=== PATIENT | male | born 1965 | race Caucasian/White ===

== ENCOUNTER → 2017-04-09 | Outpatient (CLI) | payer SELFPAY ==
[~2017-04-09] MED LIST: GADOBUTROL 10 MMOL/10 ML (GADAVIST) VIAL IV ONE
--- NOTE | 2017-04-09 14:55 | Diagnostic Imaging Report ---
PROCEDURE: MRI right upper extremity with and without contrast. TECHNIQUE: Multiplanar, multisequence pre and post contrast-enhanced MRI of the right upper extremity was accomplished. INDICATION: Further evaluation of abnormality in the right humerus seen on outside radiograph. COMPARISONS: None available. FINDINGS: Within the humeral diaphysis, there is a centrally located intramedullary T2 hyperintense cystic lesion which expands a long segment measuring approximately 15 cm in length. The margins of this lesion are somewhat lobulated but well-circumscribed. There is no endosteal scalloping but the lesion does replace greater than two thirds of the diameter of the medullary cavity. Postcontrast imaging demonstrates no thick septal enhancement or solid nodular enhancement within the cyst. There is minimal peripheral rim calcification which is compatible with a simple cyst. No pathologic fracture is present. There is no abnormal mass-like enhancement in the soft tissues of the right upper arm. Musculature is normal in bulk and signal. Visualized aspects of the brachial plexus are unremarkable. IMPRESSION: 1. Intramedullary cystic lesion involves a long segment of the humeral diaphysis, extending over a length of 15 cm. There is no suspicious thick septal or nodular postcontrast enhancement to suggest neoplastic lesion. 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 No pathologic fracture at this time. However, given that this lesion likely has a lytic appearance on radiographs and occupies greater than two thirds of the humeral cross-sectional area, this lesion is at elevated risk for future pathologic fracture. Consultation with orthopedics is suggested to determine the need for potential prophylactic fixation. Dictated by: Dictated on workstation # [id number]
== END ==
LOC: RAD 10:35
PROVIDERS: ATTEND Nurse Practitioner Family
DX: R93.7 Abnormal findings on diagnostic imaging of other parts of musculoskeletal system (principal); M89.9 Disorder of bone, unspecified
CPT/HCPCS: 73220

== ENCOUNTER → 2017-06-09 | Outpatient (CLI) | payer OTHER ==
--- NOTE | 2017-06-16 09:25 | Diagnostic Imaging Report ---
PROCEDURE: MR imaging cervical spine without contrast. TECHNIQUE: Multiplanar, multisequence MR imaging of the cervical spine was performed without contrast. INDICATION: Cervical radiculopathy. Right arm pain. FINDINGS: There is satisfactory alignment at the posterior spinal line. There is mild straightening of the lordotic curvature of the cervical spine. There is prominent anterior osteophytes at C5-C6 level and slightly prominent posterior osteophytes also demonstrated at C5-C6 and to lesser extent C6-C7. There is preserved vertebral body heights. There is disc desiccation at all levels with [id number]-[id number] disc height loss at C5-C6. In C7 vertebral body, there is a 1 cm hyperintense T1 and T2-weighted lesion seen with somewhat similar lesion with less prominent T1 signal within T2 vertebral body suggestive of hemangiomas. The spinal cord has normal caliber, contour, and signal. The foramen magnum is widely patent. The upper cervical canal is patent. C2-C3: No disc herniation or spinal canal stenosis. There is uncovertebral and facet joint hypertrophy more on the left side resulting in [id number] foraminal stenosis on the left and no significant foraminal stenosis on the right side. C3-C4: No significant disc herniation or spinal canal stenosis. There is a mild foraminal narrowing bilaterally. C4-C5: No disc herniation or spinal canal stenosis. There is a mild foraminal stenosis bilaterally. C5-C6: There is a disc spur complex more prominent along the left paracentral region and is associated with moderate spinal canal stenosis with the minimal impression upon the anterior margin of the left side of the spinal cord with no cord signal abnormality. The AP dimension of the canal is reduced to 7.7 mm just to the left of the midline. The foramina demonstrate bilateral severe stenosis. C6-C7: There is a moderate spur disc complex and posterior ligamentous hypertrophy reducing the AP dimension of the central canal to 7.1 mm without cord compression. The foramina demonstrate severe stenosis on the right and [id number] stenosis on the left. C7-T1: No disc herniation, no spinal canal or foraminal stenosis. IMPRESSION: There are prominent degenerative changes around the C5-C6 and C6-C7 levels resulting in prominent spinal canal stenosis, and severe foraminal stenosis bilaterally at C5-C6 and worse on the right side at C6-C7 level. Dictated by: Dictated on workstation # [id number]
== END ==
LOC: RAD 10:30
PROVIDERS: ATTEND Nurse Practitioner Family
DX: M54.12 Radiculopathy, cervical region (principal)
CPT/HCPCS: 72141